=== PATIENT | female | born 1960 | race Hispanic/Latino ===

== ENCOUNTER 2017-10-05 13:36 | Inpatient (IN) | payer MEDICARE ==
[~2017-10-05] VITALS: Ht 134.6 cm; Wt 73.1 kg
[~2017-10-05 13:36] MED LIST: ASPI-555 PO; CARV3.12 PO; CLOP75TA32 PO; FURO40TA5 PO; METF10004 PO; SIMV40TA59 PO
[2017-10-05] MEDS ORDERED: DEXTROSE 50%-WATER 50 ML DISP.SYRIN IV ONE (14:01)
[2017-10-05 14:07] LABS: EOSINOPHILS % (AUTO) 2.9 % (0.0-8.0); HEMATOCRIT 31.4 % (36-48); LYMPHOCYTES % (AUTO) 23.5 % (21.0-51.0); MEAN CORPUSCULAR HEMOGLOBIN 31.3 pg (27.0-33.0); MEAN CORPUSCULAR VOLUME 92.1 fL (79-99); MONOCYTES % (AUTO) 7.9 % (3.0-13.0); NEUTROPHILS % (AUTO) 64.7 % (40.0-77.0); PLATELET COUNT (AUTO) 184 K/uL (130-400); RED BLOOD CELL COUNT(AUTO) 3.41 MIL/uL (4.00-5.50); RED CELL DISTRIBUTION WIDTH 13.5 % (11.0-15.5); WHITE BLOOD COUNT (AUTO) 7.7 K/uL (4.8-10.8)
[2017-10-05 14:20] LABS: CREATININE 4.3 mg/dL (0.5-1.5); POTASSIUM 5.1 mmol/L (3.5-5.1)
[2017-10-05] MEDS ORDERED: SODIUM CHLORIDE 0.9% 500ML 500 ML IV ONE ×2 (14:35→16:46)
[2017-10-05 14:39] LABS: ALBUMIN 2.6 g/dL (3.5-5.0); BILIRUBIN,TOTAL 0.3 mg/dL (0.2-1.0); TOTAL PROTEIN, SERUM 6.8 g/dL (6.0-8.3)
[2017-10-05 14:42] LABS: CREATINE KINASE MB < 0.5 ng/mL (0.5-3.6); CREATINE KINASE, TOTAL 64 U/L (21-232)
[2017-10-05] MEDS ORDERED: CEFTRIAXONE SODIUM 1 GM ONE (15:51)
[2017-10-05] MEDS ORDERED: VANCOMYCIN PROTOCOL PER PHARMACY IV SCH (17:45)
[2017-10-05] MEDS ORDERED: ACETAMINOPHEN 325 MG TAB PO PRN (18:00)
[2017-10-05] MEDS ORDERED: VANCOMYCIN 1.5 GM in SODIUM CHLORIDE 0.9% 250 ML IV SCH (18:00)
[2017-10-05] MEDS ORDERED: ONDANSETRON HCL 4 MG/2 ML VIAL IVP PRN (18:00)
[2017-10-05] MEDS ORDERED: ZOSYN 3.375GM+NS 50ML 50 ML IV SCH (18:00)
[2017-10-05 18:49] LABS: APPEARANCE,URINE Turbid (CLEAR); BILIRUBIN,URINE Negative (NEGATIVE); COLOR,URINE Yellow (YELLOW); GLUCOSE, URINE (UA) 500 mg/dL (NEGATIVE); KETONES,URINE Trace mg/dL (NEGATIVE); LEUKOCYTE ESTERASE ,URINE Small (NEGATIVE); NITRATE,URINE Negative (NEGATIVE); OCCULT BLOOD,URINE Negative (NEGATIVE); PH,URINE 5.5 (5.0-8.0); PROTEIN,URINE >=1000 (NEGATIVE); UROBILINOGEN,URINE 0.2 mg/dL (0.2-1.0)
[2017-10-05] MEDS ORDERED: MEROPENEM 500 MG VIAL IVP SCH (19:00)
[2017-10-05 19:32] LABS: RBC,URINE None Seen /HPF (0-1); YEAST,URINE BUDDING Moderate /HPF (None Seen)
[2017-10-05 19:33] LABS: BACTERIA,URINE Few /HPF (None Seen); SQUAMOUS EPITHELIAL CELL,UR 30-50 /LPF (0-2)
[2017-10-05] MEDS: INSULIN R PO SS1/2 SQ SCH (21:00)
[2017-10-05 21:43] VITALS: BP 128/75
[2017-10-05] MEDS ORDERED: CARV6.25 PO (23:08)
[2017-10-05] MEDS ORDERED: TYL3B PO (23:08)
[2017-10-05] MEDS ORDERED: LOPE2CAP PO (23:08)
[2017-10-05] MEDS ORDERED: ASPI-1197 PO (23:08)
[2017-10-05] MEDS ORDERED: SEVE800T7 PO (23:08)
[2017-10-05] MEDS ORDERED: INSU100I3 SQ (23:08)
[2017-10-05] MEDS ORDERED: LISI2.5T2 PO (23:08)
[2017-10-05] MEDS ORDERED: CEPH250C3 PO (23:08)
[2017-10-05] MEDS ORDERED: INSU100I21 SQ (23:08)
[2017-10-05] MEDS ORDERED: ATOR40TA71 PO (23:08)
[2017-10-05] MEDS ORDERED: CLOP75TA32 PO (23:08)
[2017-10-05] MEDS ORDERED: ISOS30TA6 PO (23:08)
[2017-10-05] MEDS: LEVOFLOXACIN 500 MG/D5W 100 ML 100 ML IV SCH (23:12)
[2017-10-05] MEDS: PANTOPRAZOLE SODIUM 40 MG TABLET.DR PO SCH (23:12)
[2017-10-05 23:23] VITALS: BP 112/57
[2017-10-06 03:26] VITALS: BP 98/57
[2017-10-06 04:23] LABS: HEMATOCRIT 29.4 % (36-48); MEAN CORPUSCULAR HGB CONC 34.9 g/dL (32.0-36.0); MEAN CORPUSCULAR VOLUME 91.6 fL (79-99); PLATELET COUNT (AUTO) 175 K/uL (130-400); RED BLOOD CELL COUNT(AUTO) 3.21 MIL/uL (4.00-5.50); RED CELL DISTRIBUTION WIDTH 13.5 % (11.0-15.5); WHITE BLOOD COUNT (AUTO) 7.8 K/uL (4.8-10.8)
[2017-10-06 04:34] LABS: ALBUMIN 2.6 g/dL (3.5-5.0); BILIRUBIN,TOTAL 0.4 mg/dL (0.2-1.0); MAGNESIUM 1.8 mg/dL (1.80-2.40); PHOSPHORUS 6.3 mg/dL (2.5-4.9); POTASSIUM 5.1 mmol/L (3.5-5.1); TOTAL PROTEIN, SERUM 6.5 g/dL (6.0-8.3)
[2017-10-06 05:07] LABS: BAND NEUTROPHILS % (MANUAL) 12 % (0-2); EOSINOPHILS % (MANUAL) 1 % (1-6); LYMPHOCYTES % (MANUAL) 21 % (22-44); MAN.DIFF COMMENT-IMPRESSION MANUAL DIFFERENTIAL; MONOCYTES % (MANUAL) 5 % (2-9); PLATELET MORPHOLOGY COMMENT ADEQUATE; SEGMENTED NEUTROPHILS % 61 % (40-70)
[2017-10-06] MEDS: INSULIN R PO SS1/2 SQ SCH ×4 (06:50→20:59)
[2017-10-06 07:25] VITALS: BP 111/47
[2017-10-06] MEDS ORDERED: HEPARIN SODIUM 5000UNIT/ML 1ML VIAL ONE (10:37)
[2017-10-06 11:25] VITALS: BP 122/56
[2017-10-06] MEDS: PANTOPRAZOLE SODIUM 40 MG TABLET.DR PO SCH (12:32)
[2017-10-06] MEDS ORDERED: 0.9% SODIUM CHLORIDE 250 ML IV BAG IV PRN (13:00)
[2017-10-06] MEDS ORDERED: HEPARIN SODIUM 5000UNIT/ML 1ML VIAL IJ PRN ×2 (13:00→17:03)
[2017-10-06] MEDS: MIDODRINE HCL 5 MG TABLET PO SCH ×2 (14:43→20:59)
[2017-10-06 16:13] VITALS: BP 90/50
[2017-10-06] MEDS ORDERED: COMPOUND IV REFRIGERATED 1 EACH IVSOLN MISC PRN (16:45)
[2017-10-06] MEDS: VANCOMYCIN 750MG + NS 250 ML IV SCH ×2 (18:41)
[2017-10-06 19:33] VITALS: BP 99/60
[2017-10-07] VITALS (7 sets, daily range): BP systolic 101–133; BP diastolic 65–75
[2017-10-07 04:24] LABS: HEMATOCRIT 31.5 % (36-48); MEAN CORPUSCULAR HEMOGLOBIN 31.2 pg (27.0-33.0); MEAN CORPUSCULAR HGB CONC 33.8 g/dL (32.0-36.0); MEAN CORPUSCULAR VOLUME 92.4 fL (79-99); PLATELET COUNT (AUTO) 190 K/uL (130-400); RED BLOOD CELL COUNT(AUTO) 3.41 MIL/uL (4.00-5.50); RED CELL DISTRIBUTION WIDTH 13.3 % (11.0-15.5); WHITE BLOOD COUNT (AUTO) 8.1 K/uL (4.8-10.8)
[2017-10-07 04:42] LABS: BAND NEUTROPHILS % (MANUAL) 5 % (0-2); CREATININE 4.1 mg/dL (0.5-1.5); EOSINOPHILS % (MANUAL) 1 % (1-6); LYMPHOCYTES % (MANUAL) 29 % (22-44); MONOCYTES % (MANUAL) 9 % (2-9); PHOSPHORUS 5.3 mg/dL (2.5-4.9); SEGMENTED NEUTROPHILS % 56 % (40-70)
[2017-10-07 04:43] LABS: MAN.DIFF COMMENT-IMPRESSION MANUAL DIFFERENTIAL
[2017-10-07] MEDS: INSULIN R PO SS1/2 SQ SCH ×4 (05:59→21:41)
[2017-10-07] MEDS: PANTOPRAZOLE SODIUM 40 MG TABLET.DR PO SCH (13:03)
[2017-10-07] MEDS: MIDODRINE HCL 5 MG TABLET PO SCH ×2 (13:03→20:40)
[2017-10-08] MEDS: LEVOFLOXACIN 500 MG/D5W 100 ML 100 ML IV SCH (02:15)
[2017-10-08 03:40] VITALS: BP 114/63
[2017-10-08] MEDS: INSULIN R PO SS1/2 SQ SCH ×4 (05:58→21:58)
[2017-10-08 07:15] VITALS: BP 135/67
[2017-10-08] MEDS: PANTOPRAZOLE SODIUM 40 MG TABLET.DR PO SCH (08:35)
[2017-10-08] MEDS: MIDODRINE HCL 5 MG TABLET PO SCH ×3 (08:36→21:00)
[2017-10-08] MEDS: SODIUM CHLORIDE 0.9% 1000ML 1,000 ML IV PRN (10:06)
[2017-10-08 12:05] VITALS: BP 144/54
[2017-10-08] MEDS ORDERED: ACETAMINOPHEN-CODEINE 300/30MG TAB PO PRN (12:30)
[2017-10-08] MEDS: HEPARIN SODIUM 5000UNIT/ML 1ML VIAL IJ PRN (13:19)
[2017-10-08 16:05] VITALS: BP 117/70
[2017-10-08] MEDS: VANCOMYCIN 750MG + NS 250 ML IV SCH ×2 (16:30)
[2017-10-08] MEDS: CARVEDILOL 6.25 MG TABLET PO SCH (20:20)
[2017-10-08] MEDS: ATORVASTATIN CALCIUM 40 MG TABLET PO SCH (20:20)
[2017-10-08] MEDS: SEVELAMER HCL 800 MG TABLET PO SCH (20:20)
[2017-10-09] VITALS (7 sets, daily range): BP systolic 90–131; BP diastolic 51–72
[2017-10-09 04:31] LABS: HEMATOCRIT 31.7 % (36-48); MEAN CORPUSCULAR HEMOGLOBIN 31.3 pg (27.0-33.0); NUCLEATED RED BLOOD CELLS 0.1 % (0.0-0.19); PLATELET COUNT (AUTO) 206 K/uL (130-400); RED BLOOD CELL COUNT(AUTO) 3.44 MIL/uL (4.00-5.50); RED CELL DISTRIBUTION WIDTH 13.9 % (11.0-15.5); WHITE BLOOD COUNT (AUTO) 8.7 K/uL (4.8-10.8)
[2017-10-09 05:00] LABS: CREATININE 4.6 mg/dL (0.5-1.5); PHOSPHORUS 5.4 mg/dL (2.5-4.9); POTASSIUM 4.6 mmol/L (3.5-5.1)
[2017-10-09] MEDS: INSULIN R PO SS1/2 SQ SCH ×4 (05:56→21:00)
[2017-10-09 07:14] LABS: BASOPHILS % (MANUAL) 1 % (0-2); EOSINOPHILS % (MANUAL) 4 % (1-6); LYMPHOCYTES % (MANUAL) 17 % (22-44); MAN.DIFF COMMENT-IMPRESSION MANUAL DIFFERENTIAL; MONOCYTES % (MANUAL) 7 % (2-9); PLATELET MORPHOLOGY COMMENT ADEQUATE; SEGMENTED NEUTROPHILS % 71 % (40-70)
[2017-10-09] MEDS: CLOPIDOGREL BISULFATE 75 MG TAB PO SCH (09:57)
[2017-10-09] MEDS: SEVELAMER HCL 800 MG TABLET PO SCH ×2 (09:57→21:28)
[2017-10-09] MEDS: MIDODRINE HCL 5 MG TABLET PO SCH ×3 (09:57→21:00)
[2017-10-09] MEDS: LISINOPRIL 2.5 MG TABLET PO SCH (09:57)
[2017-10-09] MEDS: ASPIRIN 81MG TAB.CHEW PO SCH (09:58)
[2017-10-09] MEDS: PANTOPRAZOLE SODIUM 40 MG TABLET.DR PO SCH (09:58)
[2017-10-09] MEDS: CARVEDILOL 6.25 MG TABLET PO SCH ×2 (09:58→21:00)
[2017-10-09 15:13] LABS: ABG BASE EXCESS -3.5 mmol/L (-2.0-3.0); ABG HCO3 21.7 mmol/L (21.0-28.0); ABG PCO2 40 mmHg (32-45)
[2017-10-09] MEDS: ALBUMIN (HUMAN) 25% 100 ML IV PRN (18:34)
[2017-10-09] MEDS: SODIUM CHLORIDE 0.9% 1000ML 1,000 ML IV PRN (20:15)
[2017-10-09] MEDS: HEPARIN SODIUM 5000UNIT/ML 1ML VIAL IJ PRN (20:17)
[2017-10-09] MEDS: ATORVASTATIN CALCIUM 40 MG TABLET PO SCH (21:28)
[2017-10-09] MEDS: LEVOFLOXACIN 500 MG/D5W 100 ML 100 ML IV SCH (21:28)
[2017-10-10 03:48] VITALS: BP 115/60
[2017-10-10 04:36] LABS: HEMATOCRIT 31.1 % (36-48); MEAN CORPUSCULAR HEMOGLOBIN 31.7 pg (27.0-33.0); MEAN CORPUSCULAR HGB CONC 34.4 g/dL (32.0-36.0); NUCLEATED RED BLOOD CELLS 0.1 % (0.0-0.19); PLATELET COUNT (AUTO) 209 K/uL (130-400); RED BLOOD CELL COUNT(AUTO) 3.38 MIL/uL (4.00-5.50); RED CELL DISTRIBUTION WIDTH 13.7 % (11.0-15.5); WHITE BLOOD COUNT (AUTO) 7.6 K/uL (4.8-10.8)
[2017-10-10 04:40] LABS: CREATININE 4.3 mg/dL (0.5-1.5); POTASSIUM 4.2 mmol/L (3.5-5.1)
[2017-10-10] MEDS: INSULIN R PO SS1/2 SQ SCH ×4 (05:56→22:24)
[2017-10-10 07:35] VITALS: BP 108/63
[2017-10-10] MEDS: ASPIRIN 81MG TAB.CHEW PO SCH (09:11)
[2017-10-10] MEDS: CLOPIDOGREL BISULFATE 75 MG TAB PO SCH (09:11)
[2017-10-10] MEDS: MIDODRINE HCL 5 MG TABLET PO SCH ×3 (09:11→20:01)
[2017-10-10] MEDS: SEVELAMER HCL 800 MG TABLET PO SCH ×2 (09:11→20:01)
[2017-10-10] MEDS: PANTOPRAZOLE SODIUM 40 MG TABLET.DR PO SCH (09:11)
[2017-10-10] MEDS: LISINOPRIL 2.5 MG TABLET PO SCH (09:11)
[2017-10-10] MEDS: CARVEDILOL 6.25 MG TABLET PO SCH ×2 (09:12→20:01)
[2017-10-10 11:27] VITALS: BP 132/71
[2017-10-10 16:58] VITALS: BP 126/63
[2017-10-10 19:44] VITALS: BP 137/63
[2017-10-10] MEDS: ATORVASTATIN CALCIUM 40 MG TABLET PO SCH (20:01)
[2017-10-10 23:33] VITALS: BP 127/62
[2017-10-11 03:53] VITALS: BP 128/59
[2017-10-11 04:39] LABS: CREATININE 5.6 mg/dL (0.5-1.5); POTASSIUM 4.5 mmol/L (3.5-5.1)
[2017-10-11 04:48] LABS: HEMATOCRIT 31.1 % (36-48); MEAN CORPUSCULAR VOLUME 91.1 fL (79-99); PLATELET COUNT (AUTO) 227 K/uL (130-400); RED BLOOD CELL COUNT(AUTO) 3.41 MIL/uL (4.00-5.50); RED CELL DISTRIBUTION WIDTH 13.9 % (11.0-15.5); WHITE BLOOD COUNT (AUTO) 8.6 K/uL (4.8-10.8)
[2017-10-11] MEDS: INSULIN R PO SS1/2 SQ SCH ×3 (05:52→16:04)
[2017-10-11 07:30] VITALS: BP 114/57
[2017-10-11] MEDS: LISINOPRIL 2.5 MG TABLET PO SCH (09:00)
[2017-10-11] MEDS: ASPIRIN 81MG TAB.CHEW PO SCH (09:00)
[2017-10-11] MEDS: MIDODRINE HCL 5 MG TABLET PO SCH ×2 (09:00→14:00)
[2017-10-11] MEDS: PANTOPRAZOLE SODIUM 40 MG TABLET.DR PO SCH (09:00)
[2017-10-11] MEDS: CARVEDILOL 6.25 MG TABLET PO SCH (09:00)
[2017-10-11] MEDS: CLOPIDOGREL BISULFATE 75 MG TAB PO SCH (09:00)
[2017-10-11] MEDS: SEVELAMER HCL 800 MG TABLET PO SCH (09:00)
[2017-10-11 11:33] VITALS: BP 124/64
[2017-10-11] MEDS ORDERED: MIDO10TA PO (11:47)
[2017-10-11 16:20] VITALS: BP 158/57
== END 2017-10-11 18:30 | disposition home or self-care (01) | DRG 291 ==
LOC: EDH 13:36 → EDHIP 17:11 → 2DH 21:27
PROVIDERS: ADMIT Internal Medicine Nephrology; ATTEND Internal Medicine Nephrology
PROC: 5A1D80Z Performance of Urinary Filtration, Prolonged Intermittent, 6-18 hours Per Day (ICD-10-PCS; 2017-10-06)
PROC: 5A1D80Z Performance of Urinary Filtration, Prolonged Intermittent, 6-18 hours Per Day (ICD-10-PCS; principal; 2017-10-08)
PROC: 5A1D80Z Performance of Urinary Filtration, Prolonged Intermittent, 6-18 hours Per Day (ICD-10-PCS; 2017-10-09)
PROC: 5A1D80Z Performance of Urinary Filtration, Prolonged Intermittent, 6-18 hours Per Day (ICD-10-PCS; 2017-10-11)
DX: I13.2 Hypertensive heart and chronic kidney disease with heart failure and with stage 5 chronic kidney disease, or end stage renal disease (principal); I50.21 Acute systolic (congestive) heart failure; I95.9 Hypotension, unspecified; N18.6 End stage renal disease; E11.22 Type 2 diabetes mellitus with diabetic chronic kidney disease; I42.9 Cardiomyopathy, unspecified; Z68.41 Body mass index [BMI] 40.0-44.9, adult; D64.9 Anemia, unspecified; E66.9 Obesity, unspecified; I25.10 Atherosclerotic heart disease of native coronary artery without angina pectoris; Z87.891 Personal history of nicotine dependence; Z91.19 Patient's noncompliance with other medical treatment and regimen; Z99.2 Dependence on renal dialysis; E78.5 Hyperlipidemia, unspecified; Z28.21 Immunization not carried out because of patient refusal
CPT/HCPCS: 36415; 36600; 71045; 71046; 80048; 80053; 80202; 81001; 82550; 82553; 82803; 82948; 83605; 83735; 83880; 84100; 84484; 85025; 85027; 87040; 87088; 87804; 90935; 93005; 94760; 97039; 99291; J0696; J1644; J1815; J1956; J2405; J3370; J7030; J7040; J7070; P9046

== ENCOUNTER → 2017-10-26 | Outpatient (CLI) | payer MEDICARE ==
[~2017-10-26] MED LIST changes: +ASPI-1197 PO; +ATOR40TA71 PO; -FURO40TA5 PO; +INSU100I21 SQ; +INSU100I3 SQ; +LISI2.5T2 PO; +LOPE2CAP PO; -METF10004 PO; +MIDO10TA PO; +SEVE800T7 PO; +TYL3B PO
== END | disposition home or self-care (01) ==
LOC: SHCH 08:10
PROVIDERS: ATTEND Internal Medicine Cardiovascular Disease
DX: I25.5 Ischemic cardiomyopathy (principal)
CPT/HCPCS: 93306

== ENCOUNTER 2017-10-29 19:45 | Emergency (ER) | payer MEDICARE ==
[~2017-10-29 19:45] MED LIST changes: +ATROPINE SULFATE 0.1 MG/ML 10 ML SYG IVP ONE; +CALCIUM CHLORIDE 100 MG/ML 10 ML SYG IVP ONE; +DEXTROSE 50%-WATER 50 ML DISP.SYRIN IV ONE; +EPINEPHRINE 0.1 MG/ML 10 ML SYG IVP ONE; +SODIUM BICARB 8.4% 50ML SYRINGE IVP ONE
[2017-10-29] MEDS ORDERED: INSULIN HUMULIN R 100 UNIT/ML 3ML ONE (20:05)
[2017-10-29 20:21] LABS: ABG BASE EXCESS -7.7 mmol/L (-2.0-3.0); ABG OXYGEN SATURATION 86.6 % (95.0-99.0); ABG PCO2 49 mmHg (32-45)
[2017-10-29] MEDS ORDERED: EPINEPHRINE 1 MG/ML AMPULE ONE (20:34)
[2017-10-29] MEDS ORDERED: EPINEPHRINE 2 MG in SODIUM CHLORIDE 0.9% 250 ML IV SCH (20:45)
== END 2017-10-29 22:49 | disposition expired ==
LOC: EDH 19:45
DX: I21.29 ST elevation (STEMI) myocardial infarction involving other sites (principal); R09.2 Respiratory arrest
CPT/HCPCS: 31500; 36600; 71045; 82330; 82435; 82803; 82947; 83605; 84132; 84295; 85018; 92950 ×2; 93005; 99291; J0171 ×4; J0461; J1815; J3490 ×2; J7030; J7070